=== PATIENT | female | born 1995 | race Caucasian/White ===

== ENCOUNTER 2018-06-27 22:37 | Outpatient (CLI) | payer SELFPAY ==
[~2018-06-27] VITALS: Ht 157.5 cm; Wt 103.0 kg
[2018-06-27 23:00] VITALS: BP 128/71
== END 2018-06-28 00:20 | disposition home or self-care (01) ==
LOC: LDOP 22:37
PROVIDERS: ATTEND Obstetrics & Gynecology
DX: O42.913 Preterm premature rupture of membranes, unspecified as to length of time between rupture and onset of labor, third trimester (principal); Z3A.36 36 weeks gestation of pregnancy
CPT/HCPCS: 59025; 89060; 99211; G0463; Q0114

== ENCOUNTER 2018-07-07 12:06 | Outpatient (CLI) | payer SELFPAY ==
[~2018-07-07] VITALS: Ht 157.5 cm; Wt 105.9 kg
[2018-07-07 12:33] VITALS: BP 113/60
[2018-07-07 12:40] LABS: MICROSCOPIC INDICATED
[2018-07-07 12:47] LABS: CREATININE,URINE RANDOM 80.5 mg/dL
[2018-07-07 13:05] LABS: ALBUMIN 2.9 g/dL (3.4-5.0); ANION GAP 8 mmol/L (5-15); CALCIUM 8.5 mg/dL (8.5-10.1); CHLORIDE 112 mmol/L (98-107)
[2018-07-07 13:08] LABS: ALANINE AMINOTRANSFERASE 26 U/L (12-78); ALKALINE PHOSPHATASE 130 U/L (45-117); BILIRUBIN,TOTAL 0.4 mg/dL (0.2-1.0); CREATININE 0.55 mg/dL (0.55-1.02); TOTAL PROTEIN 6.5 g/dL (6.4-8.2)
[2018-07-07 13:28] LABS: BILIRUBIN, DIRECT < 0.1 mg/dL (0.1-0.2)
[2018-07-07 13:48] LABS: BASOPHILS # (AUTO) 0.04 x10^3/uL (0-0.1); BASOPHILS % (AUTO) 1 % (0-1); EOSINOPHILS # (AUTO) 0.04 x10^3/uL (0-0.4); EOSINOPHILS % (AUTO) 1 % (1-7); LYMPHOCYTES # (AUTO) 1.44 x10^3/uL (1-3.4); LYMPHOCYTES % (AUTO) 16 % (22-44); MD NO; MEAN CORPUSCULAR HEMOGLOBIN 29.2 pg (27.0-34.8); MEAN CORPUSCULAR HGB CONC 33.6 g/dL (32.4-35.8); MEAN PLATELET VOLUME 7.2 fL (7.4-10.4); MONOCYTES # (AUTO) 0.43 x10^3/uL (0.2-0.8); MONOCYTES % (AUTO) 5 % (2-9); NEUTROPHILS # (AUTO) 6.82 x10^3/uL (1.8-6.8); NEUTROPHILS % (AUTO) 78 % (42-75); PLATELET COUNT 184 x10^3/uL (130-400); RED BLOOD COUNT 4.64 x10^6/uL (3.82-5.3); RED CELL DISTRIBUTION WIDTH 13.7 % (9.6-15.2)
[2018-07-07] MEDS ORDERED: PREN1TAB10 PO (14:09)
[2018-07-07] MEDS ORDERED: ACET325C3 PO (14:11)
[2018-07-07] MEDS ORDERED: ACET500T76 PO (14:11)
== END 2018-07-07 14:30 | disposition home or self-care (01) ==
LOC: LDOP 12:06
PROVIDERS: ATTEND Obstetrics & Gynecology
DX: O13.3 Gestational [pregnancy-induced] hypertension without significant proteinuria, third trimester (principal); Z3A.38 38 weeks gestation of pregnancy
CPT/HCPCS: 36415; 59025; 80053; 81001; 82248; 82570; 84156; 84550; 85025; 99211; G0463

== ENCOUNTER 2018-07-11 17:58 | Outpatient (CLI) | payer SELFPAY ==
[~2018-07-11] VITALS: Ht 160 cm; Wt 105.0 kg
[~2018-07-11 17:58] MED LIST: ACET325C3 PO; ACET500T76 PO; PREN1TAB10 PO
[2018-07-11 18:40] LABS: MICROSCOPIC INDICATED
[2018-07-11 18:52] VITALS: BP 133/79
== END 2018-07-11 19:37 | disposition home or self-care (01) ==
LOC: LDOP 17:58
PROVIDERS: ATTEND Obstetrics & Gynecology
DX: O42.92 Full-term premature rupture of membranes, unspecified as to length of time between rupture and onset of labor (principal); Z3A.38 38 weeks gestation of pregnancy
CPT/HCPCS: 59025; 81001; 84112; 87086; 99211; G0463

== ENCOUNTER 2018-07-17 08:18 | Outpatient (CLI) | payer SELFPAY ==
[~2018-07-17] VITALS: Ht 157.5 cm; Wt 105.9 kg
[2018-07-20] MEDS ORDERED: IBUP-1222 PO (14:15)
[2018-07-20] MEDS ORDERED: DOCU-131 PO (14:15)
[2018-07-20] MEDS ORDERED: OXYC-302 PO (14:15)
== END 2018-07-17 10:34 | disposition home or self-care (01) ==
LOC: LDOP 08:18
PROVIDERS: ATTEND Obstetrics & Gynecology
DX: O26.893 Other specified pregnancy related conditions, third trimester (principal); M54.9 Dorsalgia, unspecified; R10.2 Pelvic and perineal pain; Z3A.39 39 weeks gestation of pregnancy
CPT/HCPCS: 59025; 99211; G0463

== ENCOUNTER 2018-07-18 18:34 | Outpatient (CLI) | payer OTHER ==
[2018-07-20] MEDS ORDERED: OXYC-302 PO (14:15)
[2018-07-20] MEDS ORDERED: IBUP-1222 PO (14:15)
[2018-07-20] MEDS ORDERED: DOCU-131 PO (14:15)
== END 2018-07-18 20:36 | disposition home or self-care (01) ==
LOC: LDOP 18:34
PROVIDERS: ATTEND Obstetrics & Gynecology
DX: O26.893 Other specified pregnancy related conditions, third trimester (principal); R10.9 Unspecified abdominal pain; Z3A.39 39 weeks gestation of pregnancy
CPT/HCPCS: 59025; 99211; G0463